=== PATIENT | female | born 1990 | race Two or more races ===

== ENCOUNTER 2024-04-07 07:00 | Inpatient (IN) | payer OTHER ==
[2024-04-07] MEDS: ELECTROLYTE-148 SOLN 500 ML IV ONE (07:15)
[2024-04-07] MEDS: CITRIC ACID/SODIUM CITRATE 30 ML UNIT-DOSE CUP PO ONE (07:30)
[2024-04-07] MEDS: ELECTROLYTE-148 SOLN 1,000 ML IV SCH (08:00)
[2024-04-07 08:07] VITALS: BMI 25.9
[2024-04-07] MEDS ORDERED: morphine SULFATE/PF 1 MG/2 ML (2cc Syringe - QUVA) ONE (08:53)
[2024-04-07] MEDS ORDERED: FENTANYL CITRATE/PF 50 MCG/ML VIAL ONE (08:54)
[2024-04-07 10:19] LABS: CORD HCO3 27.2 mmHg (20-29); CORD PCO2 70.2 mmHg (30-78); CORD pH 7.206 (7.14-7.44)
[2024-04-07 10:22] LABS: CORD BASE EXCESS -3.5 mmol/L (0-2); CORD HCO3 22.4 mmHg (20-29); CORD PCO2 43.2 mmHg (30-78); CORD pH 7.333 (7.14-7.44)
[2024-04-07] MEDS ORDERED: METHYLERGONOVINE MALEATE 0.2 MG/1 ML AMP IM PRN (11:34)
[2024-04-07] MEDS: OXYTOCIN 20 UNITS in 0.9% NS 20 UNIT/1,000 ML INFUS.BAG IV SCH (11:40)
[2024-04-07] MEDS ORDERED: oxyCODONE HCL 5 MG TABLET PO PRN ×2 (23:34)
[2024-04-08] MEDS: ACETAMINOPHEN 1000 MG/100 ML BAG IVPB PRN (04:50)
[2024-04-08 08:37] LABS: BASO % 0.2 % (0-2.0); EOS % 0.9 % (0-4.5); HEMATOCRIT 36.8 % (32.4-45.2); HEMOGLOBIN 12.4 GM/dL (10.7-15.3); LYMPH % 16.7 % (8-40); MCHC 33.8 g/dl (32.0-36.0); MEAN CELL VOLUME 85.9 fl (80-96); MEAN PLT VOLUME 11.2 fl (7.5-11.1); MONO % 4.1 % (3.8-10.2); NEUT % 78.1 % (42.8-82.8); PLATELET COUNT 153 10^3/uL (134-434); RBC 4.29 M/mm3 (3.60-5.2); RDW 15.9 % (11.6-15.6); WHITE BLOOD COUNT 6.3 K/mm3 (4.0-10.0)
[2024-04-08] MEDS: SIMETHICONE 80 MG TAB.CHEW (FP) PO PRN (11:39)
[2024-04-08] MEDS: IBUPROFEN 600 MG TABLET (FP) PO PRN (18:40)
[2024-04-08] MEDS: BISACODYL 10 MG SUPP.RECT RC PRN (18:41)
[2024-04-09 21:50] VITALS: TEMP 98
[2024-04-10 07:43] LABS: BASO % 0.3 % (0-2.0); EOS % 6.3 % (0-4.5); HEMATOCRIT 36.1 % (32.4-45.2); HEMOGLOBIN 12.2 GM/dL (10.7-15.3); LYMPH % 25.9 % (8-40); MCH 29.2 pg (25.7-33.7); MCHC 33.8 g/dl (32.0-36.0); MEAN CELL VOLUME 86.3 fl (80-96); MEAN PLT VOLUME 10.6 fl (7.5-11.1); MONO % 4.4 % (3.8-10.2); NEUT % 63.1 % (42.8-82.8); PLATELET COUNT 192 10^3/uL (134-434); RBC 4.19 M/mm3 (3.60-5.2); RDW 16.3 % (11.6-15.6); WHITE BLOOD COUNT 5.9 K/mm3 (4.0-10.0)
[2024-04-10 11:28] VITALS: BP 117/75; PULSE 89; RESP 18
== END 2024-04-10 13:00 | disposition home or self-care (01) | DRG 540 ==
LOC: JLDR 07:00 → J3W 12:45
PROVIDERS: ADMIT Obstetrics & Gynecology Obstetrics; ATTEND Obstetrics & Gynecology Obstetrics
PROC: 10D00Z1 Extraction of Products of Conception, Low, Open Approach (ICD-10-PCS; principal; 2024-04-07)
DX: O34.211 Maternal care for low transverse scar from previous cesarean delivery (principal); N85.8 Other specified noninflammatory disorders of uterus; O24.429 Gestational diabetes mellitus in childbirth, unspecified control; Z3A.39 39 weeks gestation of pregnancy; Z37.0 Single live birth
CPT/HCPCS: 36415; 36600; 59409; 82803; 85025; 88307-TC; J0131